=== PATIENT | male | born 1955 | race Two or more races ===

== ENCOUNTER 2020-01-19 10:29 | Outpatient (CLI) | payer MEDICARE, OTHER | END 2020-01-19 10:30 | disposition home or self-care (01) | LOC: RT 10:29 | PROVIDERS: ATTEND Orthopaedic Surgery | DX: Z01.818 Encounter for other preprocedural examination (principal) | CPT/HCPCS: 93005 ==

== ENCOUNTER 2020-04-15 05:39 | Emergency (ER) | payer MEDICARE, OTHER ==
[2020-04-15 06:42] LABS: BASOPHILS % (AUTO) 0.2 %; EOSINOPHILS % (AUTO) 0.2 %; HGB - HEMOGLOBIN 15.3 g/dL (14.0-18.0); LYMPHOCYTES # (AUTO) 1.2 10^3/uL (1.5-3.5); MEAN CORPUSCULAR HEMOGLOBIN 32.7 pg (27.0-31.0); MEAN CORPUSCULAR HGB CONC 34.7 g/dL (32.0-36.0); MEAN CORPUSCULAR VOLUME 94.2 fL (80.0-94.0); MEAN PLATELET VOLUME 9.6 fL (7.4-11.4); MONOCYTES # (AUTO) 0.9 10^3/uL (0.0-1.0); NEUTROPHILS # (AUTO) 14.7 10^3/uL (1.5-6.6); NEUTROPHILS % (AUTO) 86.9 %; PLT - PLATELET COUNT 218 10^3/uL (130-450); RED BLOOD COUNT 4.68 10^6/uL (4.70-6.10); RED CELL DISTRIBUTION WIDTH 11.9 % (12.0-15.0); WHITE BLOOD COUNT 16.9 x10^3/uL (4.8-10.8)
[2020-04-15 06:54] LABS: ALBUMIN/GLOBULIN RATIO 1.4 (1.0-2.2); BILIRUBIN,TOTAL 2.1 mg/dL (0.2-1.0); CALCIUM 9.7 mg/dL (8.5-10.3); CREATININE 0.8 mg/dL (0.6-1.2); TOTAL PROTEIN 6.8 g/dL (6.7-8.2)
--- NOTE | 2020-04-15 08:07 | ED Physician Documentation ---
PD HPI ABD PAIN - Stated complaint Stated Complaint: ABD PAIN - Chief complaint Chief Complaint: Abd Pain - History obtained from History obtained from: Patient, Family () - Additional information Additional information: 65-year-old man with past medical history of hypothyroidism, hyperlipidemia, past surgical history of appendectomy, presents with epigastric abdominal pain sudden onset, aching, intermittent, starting 30 minutes after eating a meal at around 2 PM yesterday. Patient Reports that the pain subsided after taking antacid but then kicked up again when he drank a sip of water, gradually tapering down afterwards. Pain is nonradiating. Patient denies fever chills back pain diarrhea urinary symptoms or chest pain. He does endorse one episode of nonbloody nonbilious nausea vomiting. Asymptomatic at present. Review of Systems Ten Systems: 10 systems reviewed and negative Constitutional: denies: Fever, Chills GI: reports: Abdominal Pain, Nausea, Vomiting. denies: Diarrhea : denies: Dysuria, Frequency Musculoskeletal: denies: Back pain PD PAST MEDICAL HISTORY - Past Medical History Past Medical History: No - Present Medications Home Medications: Ambulatory Orders Medication Instructions Recorded Confirmed Levothyroxine [Synthroid] 1 tab PO DAILY 04/15/20 04/15/20 Meloxicam [Mobic] 1 tab PO DAILY 04/15/20 04/15/20 Simvastatin [Zocor] 1 tab PO DAILY 04/15/20 04/15/20 - Allergies Allergies/Adverse Reactions: Allergies Allergy/AdvReac Type Severity Reaction Status Date / Time No Known Drug Allergies Allergy Verified 04/15/20 05:52 - Social History Does the pt smoke?: No Smoking Status: Never smoker PD ED PE NORMAL - Vitals Vital signs reviewed: Yes - General General: Alert and oriented X 3 - HEENT HEENT: Atraumatic, PERRL, EOMI - Neck Neck: Supple, no meningeal sign, No JVD - Cardiac Cardiac: RRR - Respiratory Respiratory: No respiratory distress, Clear bilaterally - Abdomen Abdomen: Normal bowel sounds, Other (discomfort to palpation in RUQ and epigastrium) - Male Male : Deferred - Rectal Rectal: Deferred - Back Back: No CVA TTP - Derm Derm: Normal color, Warm and dry - Extremities Extremities: No deformity, No edema - Neuro Neuro: Alert and oriented X 3 - Psych Psych: Normal mood, Normal affect Results - Vitals Vitals: Vital Signs - 24 hr 04/15/20 04/15/20 04/15/20 05:50 07:40 09:26 Temperature 36.5 C 37.4 C Heart Rate 89 91 97 Respiratory 18 18 18 Rate Blood Pressure 138/73 H 149/83 H 134/83 H O2 Saturation 99 100 97 04/15/20 04/15/20 04/15/20 10:00 10:43 10:48 Temperature Heart Rate 101 H 100 Respiratory 16 18 Rate Blood Pressure 147/71 H 148/73 H 147/70 H O2 Saturation 100 100 04/15/20 04/15/20 04/15/20 11:05 11:30 12:00 Temperature 98.4 C H Heart Rate 103 H 101 H 103 H Respiratory 13 18 18 Rate Blood Pressure 165/91 H 142/93 H 149/98 H O2 Saturation 100 98 97 04/15/20 04/15/20 04/15/20 12:30 13:00 13:30 Temperature Heart Rate 103 H 107 H 103 H Respiratory 18 16 16 Rate Blood Pressure 155/84 H 154/82 H 140/79 H O2 Saturation 99 98 97 04/15/20 14:00 Temperature Heart Rate 104 H Respiratory 16 Rate Blood Pressure 134/65 H O2 Saturation 96 Oxygen O2 Source Room air - Labs Labs: Laboratory Tests 04/15/20 04/15/20 04/15/20 06:30 06:30 09:10 WBC 16.9 H RBC 4.68 L Hgb 15.3 Hct 44.1 MCV 94.2 H MCH 32.7 H MCHC 34.7 RDW 11.9 L Plt Count 218 MPV 9.6 Neut # (Auto) 14.7 H Lymph # (Auto) 1.2 L Mora # (Auto) 0.9 Eos # (Auto) 0.0 Baso # (Auto) 0.0 Absolute Nucleated RBC 0.00 Nucleated RBC % 0.0 Sodium 137 136 Potassium 3.6 3.5 Chloride 103 102 Carbon Dioxide 22 20 L Anion Gap 12.0 14.0 H BUN 11 10 Creatinine 0.8 0.7 Estimated GFR (MDRD) 96 112 Glucose 133 H 141 H Lactic Acid Calcium 9.7 9.6 Total Bilirubin 2.1 H 3.4 H AST 265 H 904 H ALT 118 H 356 H Alkaline Phosphatase 69 89 Total Protein 6.8 7.1 Albumin 4.0 4.2 Globulin 2.8 2.9 Albumin/Globulin Ratio 1.4 1.4 Lipase 22 Nasal Adenovirus (PCR) Nasal B. parapertussis DNA (PCR) Nasal Coronavir 229E PCR Nasal Coronavir HKU1 PCR Nasal Coronavir NL63 PCR Nasal Coronavir OC43 PCR Nasal Enterovir/Rhinovir PCR Nasal Influenza B PCR Nasal Influenza A PCR Nasal Parainfluen 1 PCR Nasal Parainfluen 2 PCR Nasal Parainfluen 3 PCR Nasal Parainfluen 4 PCR Nasal RSV (PCR) Nasal B.pertussis DNA PCR Nasal C.pneumoniae (PCR) Deonte Human Metapneumo PCR Nasal M.pneumoniae (PCR) Nasal SARS-CoV-2 (PCR) 04/15/20 04/15/20 04/15/20 09:10 10:35 13:00 WBC RBC Hgb Hct MCV MCH MCHC RDW Plt Count MPV Neut # (Auto) Lymph # (Auto) Mora # (Auto) Eos # (Auto) Baso # (Auto) Absolute Nucleated RBC Nucleated RBC % Sodium Potassium Chloride Carbon Dioxide Anion Gap BUN Creatinine Estimated GFR (MDRD) Glucose Lactic Acid 2.6 H 2.5 H Calcium Total Bilirubin AST ALT Alkaline Phosphatase Total Protein Albumin Globulin Albumin/Globulin Ratio Lipase Nasal Adenovirus (PCR) NOT DETECTED Nasal B. parapertussis DNA (PCR) NOT DETECTED Nasal Coronavir 229E PCR NOT DETECTED Nasal Coronavir HKU1 PCR NOT DETECTED Nasal Coronavir NL63 PCR NOT DETECTED Nasal Coronavir OC43 PCR NOT DETECTED Nasal Enterovir/Rhinovir PCR NOT DETECTED Nasal Influenza B PCR NOT DETECTED Nasal Influenza A PCR NOT DETECTED Nasal Parainfluen 1 PCR NOT DETECTED Nasal Parainfluen 2 PCR NOT DETECTED Nasal Parainfluen 3 PCR NOT DETECTED Nasal Parainfluen 4 PCR NOT DETECTED Nasal RSV (PCR) NOT DETECTED Nasal B.pertussis DNA PCR NOT DETECTED Nasal C.pneumoniae (PCR) NOT DETECTED Deonte Human Metapneumo PCR NOT DETECTED Nasal M.pneumoniae (PCR) NOT DETECTED Nasal SARS-CoV-2 (PCR) NOT DETECTED PD MEDICAL DECISION MAKING - ED course Complexity details: reviewed results, re-evaluated patient, d/w patient, d/w family ED course: Patient met SIRS criteria but was afebrile and asymptomatic on my initial evaluation. Septic source identified on ultrasound read at 8:45am. antibiotics, 30cc/kg bolus, cultures ordered at that time. added on lactate. will follow. discussed with nursing and with patient. d/w surgery Dr. Washington who recommends transfer for ERCP given possible choledocholithiasis that ultrasound is not detecting. d/w hospitalist who agrees. [facility] surgeon Dr. Zack Becker agreeable to admission/transfer. GI Dr. Anne at [facility] on board, recommending abx, MRCP vs ERCP, then surgery with possible intraoperative cholangiogram. Patient agreeable to transfer. Borderline tachycardic at present with robust BP. pain well controlled. lactate downtrending. Departure - Departure Disposition: 02 Transfer Acute Care Hosp Clinical Impression: Vomiting, Abdominal pain, Severe sepsis, Acute acalculous cholecystitis, Leukocytosis, Elevated liver enzymes Condition: Good
--- NOTE | 2020-04-15 08:30 | Ultrasound Report ---
PROCEDURE: Abdomen Limited INDICATIONS: abd. pain TECHNIQUE: Real-time focused scanning was performed of the abdomen, with image documentation. COMPARISON: None FINDINGS: The liver is normal size measuring 17.6 cm in length. The echotexture is mildly hyperechoi c. No discrete mass. There is a small cyst present in the left hepatic lobe and a 3.0 cm cyst present posteriorly in the right hepatic lobe. The gallbladder is distended. The wall is edematous and thickened measuring up to 12 mm. There is tra ce pericholecystic fluid. There was no sonographic Jones's sign. No visible stone or sludge. The com mon hepatic duct is 6 mm and the common bile duct is 7 mm. No visible choledocholithiasis. The right kidney measures 13.2 cm in length and contains a nonobstructing calcification in the mid po le collecting system measuring 17 mm. There is a small cyst in the right renal cortex measuring 15 mm . No visible free fluid in Morison's pouch. IMPRESSION: 1. Abnormal appearing gallbladder with an edematous, thickened wall and pericholecystic fluid. Withou t visualization of calcification, findings are suspicious for acute, acalculous cholecystitis despite negative Jones's sign. 2. Nonobstructing right intrarenal calcification. 3. Mild hepatic steatosis with a few benign liver cysts. 4. Preliminary results given by the marketing community liaison to the ordering provider at 7:25 AM. Reviewed by: Cira Joyce MD on 04/15/2020 8:29 AM PST Approved by: Cira Joyce MD on 04/15/2020 8:29 AM PST Station ID: [id number]
[2020-04-15] MEDS ORDERED: LACTATED RINGERS IV STA (08:46)
[2020-04-15] MEDS ORDERED: PIPERACILLIN/TAZOBACTAM 2.25 GM in SODIUM CHLORIDE 0.9% MINIBAG 100 ML IV STA (08:46)
[2020-04-15] MEDS ORDERED: MORPHINE 2 MG/ML CARPUJECT IVP STA (09:20)
[2020-04-15 09:40] LABS: ALBUMIN 4.2 g/dL (3.2-5.5); ALBUMIN/GLOBULIN RATIO 1.4 (1.0-2.2); BILIRUBIN,TOTAL 3.4 mg/dL (0.2-1.0); CALCIUM 9.6 mg/dL (8.5-10.3); CREATININE 0.7 mg/dL (0.6-1.2); TOTAL PROTEIN 7.1 g/dL (6.7-8.2)
[2020-04-15 11:48] LABS: C. PNEUMONIAE- RESP PCR PANEL NOT DETECTED
[2020-04-15] MEDS ORDERED: HYDROmorphone 1 MG/ML CARPUJECT IVP STA (14:16)
[2020-04-15 14:33] VITALS: BP 134/65
== END 2020-04-15 15:46 | disposition short-term general hospital (02) ==
LOC: ED 05:39
DX: K81.0 Acute cholecystitis (principal); A41.9 Sepsis, unspecified organism; R65.20 Severe sepsis without septic shock; R11.10 Vomiting, unspecified; R74.8 Abnormal levels of other serum enzymes; Z20.828 Contact with and (suspected) exposure to other viral communicable diseases; E03.9 Hypothyroidism, unspecified; E78.5 Hyperlipidemia, unspecified
CPT/HCPCS: 36415; 76705; 80053; 83605; 83690; 85025; 87040; 87631; 96365; 96375; 99284; 99285; J1170; J7120; 0202U